=== PATIENT | female | born 1950 | race Caucasian/White ===

== ENCOUNTER 2024-10-31 13:50 | Outpatient (AMB) | payer MEDICARE, SELFPAY ==
--- OUTSIDE RECORDS SUMMARY | 2024-10-31 13:53 | XMS_ITS | Clinical Summary ---
Author Organization [address] Address [address] [place] [id number] Phone Care Team Providers Care Encapsulator Name Role Phone Louise Cardoza MD Primary Care Provider [phone] Allergies Active Allergy Reactions Criticality Noted Date Comments Neomycin-Polymyxin B Gu Medium 06/11/2020 Other Reaction(s): OTHER Levofloxacin, ciprofloxacin, fluoroquinolones Side effect: Muscle ruptures Medications gabapentin (NEURONTIN) 300 mg capsule Take 1 capsule (300 mg total) by mouth 3 (three) times a day. Active methylphenidate (RITALIN) 20 mg tablet Take 1 tablet (20 mg total) by mouth 2 (two) times a day. Max Daily Amount: 40 mg Active HYDROcodone-brandyn taminophen (NORCO) 5-325 mg per tablet Take 1 tablet by mouth 4 times daily as needed for Pain. 05/10/2021 Active MAGNESIUM ORAL Take by mouth 1 (one) time each day. Active ascorbic acid (VITAMIN C) 500 mg chewable tablet Chew 1 tablet (500 mg total) 1 (one) time each day. Active amphetamine-dex troamphetamine (ADDERALL) 20 mg tablet Take 1 Tab by mouth 3 times daily. 02/07/2020 Active clonazePAM (KlonoPIN) 2 mg tablet Take 1 Tab by mouth 3 times daily as needed. 02/06/2020 Active traZODone (DESYREL) 100 mg tablet Take 2-3 Tabs by mouth at bedtime. 02/06/2020 Active calcium carbonate/vitam in D3 (CALCIUM + D ORAL) Take 1,000 mg by mouth. 1-2 tabs daily Active MULTIVITAMIN ORAL 1 qd 08/19/2007 Active VITAMIN B COMPLEX ORAL 1 qd 08/19/2007 Active Active Problems Problem Noted Date Diagnosed Date Biceps tendon rupture 04/15/2020 ADHD 02/06/2020 HAWA (generalized anxiety disorder) 02/06/2020 PTSD (post-traumatic stress disorder) 02/06/2020 Pancreatitis 07/31/2017 Overview (05/21/2024): 04/29 Diverticulitis of colon without hemorrhage 01/02 Overview (05/21/2024): Colonoscopy 2001. Rotator cuff tendinitis 01/27/2008 Overview (05/21/2024): ON LEFT more than the Right Hypertension 05/17/2005 Adjustment disorder with depressed mood 04/27/20 05 Fibromyalgia 04/27/2005 Overview (05/21/2024): Too groggy on Lyrica to continue it; Some help with Cymbalta, trazodone, clonazepam Irritable bowel syndrome 04/27/2005 Osteoarthritis of lumbar spine 04/27/2005 Overview (05/21/2024): gets facet injections on chronic Vicodin nerve block 03/2006 - not helpful IMO update PUD (peptic ulcer disease) 04/27/2005 Encounters Date Type Department Care Team Description 09/12/2024 1:41 PM EDT - 09/12/2024 11:59 PM EDT Hospital Encounter Radiology Department - [address] [id number] Radiculopathy, lumbar region; Spinal stenosis, lumbar region without neurogenic claudication Discharge Disposition: Home or Self Care from Last 3 Months Immunizations Name Administration Dates Next Due Influenza trivalent, 0.5mL ( Fluad) 65yo and older 03/09/2020,02/10/2019,12/25/2017 Influenza trivalent, 0.5mL, preservative free (Fluarix; FluLaval; Fluzone) ages 6mo and older (Afluria) 3 years and older 01/14/2013,01/29/2012,01/31/2011,02/12,02/09/2009,03/05/2008,02/08/2007 Influenza, Unspecified 01/17/2017,01/07/2016, Pfizer SARS-CoV-2 COVID-19, mRNA, LNP-S, preservative free 08/15/2021 Pneumococcal conjugate 13 va lent (Prevnar 13, PCV13) 2mo and older 01/07/2016 Pneumococcal polysaccharide 23 valent (Pneumovax 23) 2yo and older 03/19/2018 Tdap Tetanus diptheria acell ular pertussis (Boostrix; Adacel) 7yo and older 05/20/2020,09/03/2007 Zoster recombinant (Shingrix ) 19yo and older 07/15/2019 Surgical History Surgery Date Site/Laterality Comments OTHER SURGICAL HISTORY 07/2008 PROCEDURE: MAMMOGRAM APPENDECTOMY PROCEDURE: TN APPENDECTOMY COLONOSCOPY 2012 PROCEDURE: HISTORICAL COLONOSCOPY; COMMENT: No colonic polyps, diverticulosis noted, complete examination to the cecum. COLONOSCOPY 11/18/2001 PROCEDURE: HISTORICAL COLONOSCOPY; COMMENT: diverticulosis; difficult incomplete exam to the right colon. UPPER GASTROINTESTINAL ENDOSCOPY 02/03/1999 PROCEDURE: TN UPPER GI ENDOSCOPY PERFORMED; COMMENT: scar in the antrum from prior ulcer. H. pylori negative. Medical History Medical History Date Comments Adjustment disorder with depressed mood 04/27/20 DX:Adjustment disorder with depressed mood Ulcer of other part of lower limb 04/27/2005 DX:Ulcer of other part of lower limb Irritable bowel syndrome 04/27/2005 DX:Irri table bowel syndrome Essential hypertension, benign 05/17/2005 D X:Essential hypertension, benign Generalized osteoarthrosis, involving hand 04/27/2005 DX:Generalized osteoarthrosi s, involving hand; COMMENT: gets facet injections on chronic Vicodin nerve block 03/2006 - not helpful Rotator cuff tendinitis 01/27/2008 DX:Rotat or cuff tendinitis; COMMENT: ON LEFT more than the Right Myalgia and myositis, unspecified 04/27/2005 DX:Myalgia and myositis, unspecified; COMMENT: Too groggy on Lyrica to continue it; Some help with Cymbalta Diverticulosis of colon (wit hout mention of hemorrhage) 01/02/2013 DX:Diverticulosis of colon ( without mention of hemorrhage); COMMENT: Colonoscopy 2001. Pancreatitis 07/31/2017 DX:Pancreatitis; COMMENT: 04/29 Osteoarthritis of lumbar spine 04/27/2005 D X:Osteoarthritis of lumbar spine; COMMENT: gets facet injections on chronic Vicodin nerve block 03/2006 - not helpful IMO update Biceps tendon rupture 04/15/2020 DX:Biceps tendon rupture Fibromyalgia DX:Fibromyalgia Abdominal wall strain DX:Abdomin al wall strain Anxiety state DX:Anxiety state Family History Medical History Relation Name Comments Colon cancer Aunt maternal aunt Heart attack Father at 70 due to ID Diabetes Mother Relation Name Status Comments Aunt Father Mother Social History Tobacco Use Types Packs/Day Years Used Date Smoking Tobacco: Former Cigarettes Q uit: 06/14/2023 Smokeless Tobacco: Current Alcohol Use Standard Drinks/Week Comments Yes 0 (1 standard drink = 0.6 oz pur e alcohol) Comments Unknown Sex and Gender Information Value Date Recorded Sex Assigned at Not on file Legal Sex Female 10:51 AM EST Gender Identity Not on file Sexual Orientation Not on file Obstetrics History Last Filed Vital Signs Vital Sign Reading Time Taken Comments Blood Pressure 136/80 07/11/2023 1:57 PM EST Pulse 88 07/11/2023 1:57 PM EST Temperature - - Respiratory Rate - - Oxygen Saturation - - Inhaled Oxygen Concentration - - Weight 39.9 kg (88 lb) 07/11/2023 1:57 PM EST Height 152.4 cm (5') 07/11/2023 1:57 PM EST Body Mass Index 17.19 07/11/2023 1:57 PM EST Plan of Treatment Health Maintenance Due Date Last Done Comments Breast Cancer Screening 1950 Zoster Vaccines (2 of 2) 09/09/2019 07/15/2019 Colorectal Cancer Screening: Colonoscopy 04/17/2022 Hepatitis C Screening 04/17/2022 Medicare Annual Wellness Visit 04/17/2022 Osteoporosis Screening (Bone Density Screening) 04/17/2022 Social Influencers of Health Screening 04/17/2022 COVID-19 Vaccine ( season) 2024 08/15/2021 Depression Screening 07/11/2024 07/11/2023 Falls Risk Assessment 07/11/2024 07/11/2023 Hypertension/CHF/CAD Annual BMP Blood Test 07/11/2024 07/11/2023 Influenza Vaccine (Season Ended) 2025 03/09/2020, 02/10/2019, 12/25/2017, Additional history exists Cholesterol Screening (Lipid Panel) 02/05/2025 02/06/2020 RSV Immunization Adult Patients (1 - 1-dose 75+ series) 2025 DTaP,Tdap,and Td Vaccines (3 - Td or Tdap) 05/20/2030 05/20/2020, 09/03/2007 Pneumococcal Vaccine: 50+ Years Completed 03/19/2018, 01/07/2016 HIB Vaccines Aged Out No longer eligi ble based on patient's age to complete this topic HPV Vaccines Aged Out No longer eligi ble based on patient's age to complete this topic Hepatitis A Vaccines Aged Out No long er eligible based on patient's age to complete this topic Hepatitis B Vaccines Aged Out No long er eligible based on patient's age to complete this topic IPV Vaccines Aged Out No longer eligi ble based on patient's age to complete this topic MMR Vaccines Aged Out No longer eligi ble based on patient's age to complete this topic Meningococcal ACWY Vaccine Aged Out N o longer eligible based on patient's age to complete this topic Meningococcal B Vaccine Aged Out No l onger eligible based on patient's age to complete this topic RSV Immunization Patients Under 20 months Aged Out No longer eligible based on patient's age to complete this topic Varicella Vaccines Aged Out No longer eligible based on patient's age to complete this topic Procedures Procedure Name Priority Date/Time Associated Diagnosis Comments MR LUMBAR SPINE WO CONTRAST Routine 09/12/2024 2:36 PM EDT Radiculopathy, lumbar region Spinal stenosis, lumbar region without neurogenic claudication DEPRESSION SCREENING Routine 07/11/2023 ANNUAL BMP BLOOD TEST Routine 07/11/2023 FALLS RISK ASSESSMENT Routine 07/11/2023 LIPID PANEL Routine 02/06/2020 from Last 3 Months or Most Recently Relevant to Health Maintenance Results * MR Lumbar Spine wo Contrast (09/12/2024 2:36 PM EDT) Anatomical Region Laterality Modality L-spine, Spine Magnetic Resonan ce 09/12/2024 6:10 PM EDT Impressions 09/14/2024 4:02 PM EDT Severe scoliosis with diffuse degenerative changes, not significantly changed compared with 08/27/2023. Multilevel neural foraminal narrowing, most pronounced and severe on the right at L4-5. No high-grade spinal canal stenosis at any level. POS - [id number] -------- FINAL REPORT -------- Dictated By: Vira Salazar Dictated Date: 09/12/2024 18:10 ET Assigned Physician: Vira Salazar Reviewed and Electronically Signed By: Vira Salazar Signed Date: 09/14/2024 16:02 ET Workstation ID: [id number] Transcribed By: Self Edit Transcribed Date: 09/12/2024 18:13 ET Narrative 09/14/2024 4:02 PM EDT EXAM: Lumbar spine MRI HISTORY: Lower back and left hip pain. COMPARISON: 08/27/2023 CORRELATION: None TECHNIQUE: Exam performed on a 1.5 Angelica high-field MRI scanner. Multiplanar imaging performed without contrast. FINDINGS: Conus medullaris terminates at L1-2 which is within normal limits. No cord signal abnormality detected. Severe dextroscoliosis again noted with the apex at L2-3. Degree of scoliosis limits the exam. Vertebral body heights are maintained. Multilevel endplate Schmorl's nodes. Fairly diffuse loss of disc height with relative sparing at L5-S1. Tarlov cysts at the S2-3 level measuring up to 2.3 cm right of midline, similar to the prior exam. 2.6 cm T2 hyperintense signal lesion arising from the left upper kidney statistically represents a cyst. T12-L1: Disc bulging eccentric to the right. No high-grade neural foraminal narrowing or spinal canal stenosis apparent on the sagittal only images through this level. L1-L2: Disc bulging again noted. No significant interval change in the small central disc extrusion with cranial extension. Facet arthropathy again noted, greater on the left where facet disease mildly compresses the left thecal sac as before. Moderate left neural foraminal narrowing. No significant right neural foraminal narrowing. Left lateral recess is narrowed. Mild narrowing of the spinal canal. L2-L3: Disc bulging again noted. Stable grade 1 retrolisthesis of L2 on L3. Bilateral facet arthropathy, greater on the left. Left foraminal endplate spurring. Moderate left neural foraminal narrowing. No significant right neural foraminal narrowing. Left lateral recess is narrowed. Mild narrowing of the spinal canal. L3-L4: Disc bulging again noted. No significant interval change in the small central disc extrusion with cranial extension. Bilateral facet arthropathy and hypertrophy of ligamentum flavum. Moderate left neural foraminal narrowing. No significant right neural foraminal narrowing. Left lateral recess is narrowed. Mild to moderate narrowing of the spinal canal. L4-L5: Disc bulging again noted eccentric to the right. Bilateral facet arthropathy, right greater than left. Hypertrophy of ligamentum flavum. Posterior endplate spurring. Stable grade 1 anterolisthesis of L4 on L5. Severe right neural foraminal narrowing and mild to moderate left neural foraminal narrowing. Severe narrowing of the right lateral recess with compression on the descending nerve root, similar to the prior exam. Mild narrowing of the spinal canal. L5-S1: Disc bulging again noted. Bilateral facet arthropathy, right greater than left. Moderate narrowing of the right neural foramen. No significant left neural foraminal narrowing or spinal canal stenosis. Procedure Note Vira Salazar MD - 09/14/2024 EXAM: Lumbar spine MRI HISTORY: Lower back and left hip pain. COMPARISON: 08/27/2023 CORRELATION: None TECHNIQUE: Exam performed on a 1.5 Angelica high-field MRI scanner.Multiplanar imaging performed without contrast. FINDINGS: Conus medullaris terminates at L1-2 which is within normal limits. Nocord signal abnormality detected. Severe dextroscoliosis again noted with the apex at L2-3. Degree ofscoliosis limits the exam. Vertebral body heights are maintained.Multilevel endplate Schmorl's nodes. Fairly diffuse loss of disc heightwith relative sparing at L5-S1. Tarlov cysts at the S2-3 level measuring up to 2.3 cm right of midline,similar to the prior exam. 2.6 cm T2 hyperintense signal lesion arisingfrom the left upper kidney statistically represents a cyst. T12-L1: Disc bulging eccentric to the right. No high-grade neuralforaminal narrowing or spinal canal stenosis apparent on the sagittal onlyimages through this level. L1-L2: Disc bulging again noted. No significant interval change in thesmall central disc extrusion with cranial extension. Facet arthropathyagain noted, greater on the left where facet disease mildly compresses theleft thecal sac as before. Moderate left neural foraminal narrowing. Nosignificant right neural foraminal narrowing. Left lateral recess isnarrowed. Mild narrowing of the spinal canal. L2-L3: Disc bulging again noted. Stable grade 1 retrolisthesis of L2 onL3. Bilateral facet arthropathy, greater on the left. Left foraminalendplate spurring. Moderate left neural foraminal narrowing. Nosignificant right neural foraminal narrowing. Left lateral recess isnarrowed. Mild narrowing of the spinal canal. L3-L4: Disc bulging again noted. No significant interval change in thesmall central disc extrusion with cranial extension. Bilateral facetarthropathy and hypertrophy of ligamentum flavum. Moderate left neuralforaminal narrowing. No significant right neural foraminal narrowing.Left lateral recess is narrowed. Mild to moderate narrowing of the spinalcanal. L4-L5: Disc bulging again noted eccentric to the right. Bilateral facetarthropathy, right greater than left. Hypertrophy of ligamentum flavum.Posterior endplate spurring. Stable grade 1 anterolisthesis of L4 on L5.Severe right neural foraminal narrowing and mild to moderate left neuralforaminal narrowing. Severe narrowing of the right lateral recess withcompression on the descending nerve root, similar to the prior exam. Mildnarrowing of the spinal canal. L5-S1: Disc bulging again noted. Bilateral facet arthropathy, rightgreater than left. Moderate narrowing of the right neural foramen. Nosignificant left neural foraminal narrowing or spinal canal stenosis. IMPRESSION: Severe scoliosis with diffuse degenerative changes, not significantlychanged compared with 08/27/2023. Multilevel neural foraminal narrowing,most pronounced and severe on the right at L4-5. No high-grade spinalcanal stenosis at any level. POS - [id number] -------- FINAL REPORT -------- Dictated By: Vira Salazar Dictated Date: 09/12/2024 18:10 ET Assigned Physician: Vira Salazar Reviewed and Electronically Signed By: Vira Salazar Signed Date: 09/14/2024 16:02 ET Workstation ID: [id number] Transcribed By: Self Edit Transcribed Date: 09/12/2024 18:13 ET Ilir Sorintim DO IMG MRI PROCEDURES Final Result * Annual BMP Blood Test (07/11/2023) Pathologist [facility] Annual BMP Blood Test abstracted Historical Provider MD HEALTH MAINTENANCE Final Result * Falls Risk Assessment (07/11/2023) [facility] Falls Risk Assessment abstracted Historical Provider HEALTH MAINTENANCE Final Result * Depression Screening (07/11/2023) Pathologist [facility] Depression Screening abstracted Historical Provider HEALTH MAINTENANCE Final Result * Lipid panel (02/06/2020) [facility] LDL/HDL Ratio 2 0 - 4 Triglycerides 62 0 - 150 mg/dL Cholesterol 192 0 - 200 mg/dL HDL 87 >=40 mg/dL LDL Cholesterol 93 0 - 100 mg/dL Blood Venous blood specimen / Unknown Result [facility] Historical Provider LAB BLOOD ORDERABLES Malathi l Result from Last 3 Months or Most Recently Relevant to Health Maintenance Insurance [facility] MEDICARE Care Teams Encapsulator Relationship Specialty Start Date End Date Louise Cardoza MD [address] [place] [address] PCP - General 04/10/00
--- NOTE | 2024-10-31 14:14 | A.SPINEOV_ITS ---
Vital Signs 10/31/24 14:26 Height 5 ft 1 in Weight 90 lb BMI 17.0 Intake Visit Reasons: lower back and left hip pain Intake Note: Ms. Conklin is here today c/o low back and hip pain. [employer] Officer Required: No Allergies No Known Allergies Allergy (Verified 10/31/24 14:26) Physical Exam Vital Signs: BMI result Body Mass Index 17.0 Assessment & Plan Assessment & Plan (1) Sacroiliitis, not elsewhere classified: Code(s): M46.1 - Sacroiliitis, not elsewhere classified Category: Medical Plan Dear colleague Thank you for referring Mary Ellen Conklin to the office today with a chief complaint of left-sided leg pain into the left leg. HPI: This 74-year-old female had a fall on her buttocks and since that time she is experiencing severe left-sided pain in the SI joint region radiating down her left leg to the outside of her ankle. She had multiple injections done. L1 injection gave temporary relief. No SI joint injections. She denies weakness or numbness. She is incapacitated due to the pain. The following conservative treatment options were tried without success antiinflammatories, tylenol, physical therapy and injections PMH: None reported Medications: None Allergies: NKDA Social history: Nonsmoker Physical Exam: Height 5'1 weight 90 lb. Straight leg raise produces pain in the SI joint region. ERICA test is positive on the left side. No motor or sensory deficits. Radiological Studies: MRI done at [facility] shows a lumbar degenerative scoliosis with the apex at L1-2 L2-3. The left L5 foramen is open. Impression/Plan: This 74-year-old suffering from severe pain in the left SI joint region with radiation down her left leg. There is no indication for L5 nerve root compression on the MRI. Differential diagnosis is sacroiliitis posttraumatic I would like to refer back to for diagnostic left SI joint injection. The patient will return to my office if the injection is successful. Thank you for allowing me to participate in your patients care. total time spent was 50 minutes in counseling ,coordination of plan, personal review of imaging, surgical decision making and subsequent plan Lester Wynn MD, PhD Spine Fellowship Trained Neurosurgeon Director, [facility] Orders: Referrals Physiatry Referral M46.1 - Sacroiliitis, not elsewhere classified Coding Level of Care Code New Pt Level 4 (44907) Diagnoses Sacroiliitis, not elsewhere classified M46.1
[2024-10-31 14:26] VITALS: BMI 17.0
== END 2024-10-31 14:58 | disposition home or self-care (01) ==
PROVIDERS: PCP Internal Medicine; Referring Provider Physical Medicine & Rehabilitation; Visit Provider Neurological Surgery
DX: M46.1 Sacroiliitis, not elsewhere classified (principal)
CPT/HCPCS: 99204

== ENCOUNTER → 2024-10-31 13:50 | Outpatient (BNVA) | payer MEDICARE, SELFPAY | PROVIDERS: PCP Internal Medicine; Referring Provider Physical Medicine & Rehabilitation; Visit Provider Neurological Surgery | DX: M46.1 Sacroiliitis, not elsewhere classified (principal) | CPT/HCPCS: 99202 ==